=== PATIENT | female | born 1990 | race Caucasian/White ===

== ENCOUNTER 2020-08-07 09:00 | Emergency (ER) | payer OTHER, SELFPAY ==
[2020-08-07 09:10] VITALS: BP 174/111; O2SAT 98
[2020-08-07 10:01] VITALS: BP 153/107; PULSE 69; RESP 18; TEMP 36.7; O2SAT 98; BMI 26.4
[2020-08-07 10:21] VITALS: BP 156/96; PULSE 54; RESP 18; O2SAT 98
[2020-08-07 10:54] VITALS: BP 139/104; RESP 20; O2SAT 99
--- NOTE | 2020-08-07 11:44 | ED.SKABFB ---
HPI - Skin/Abscess/Foreign Bdy General Chief complaint: Eye Problems Stated complaint: cellulitis of rt eye, seen in [facility] yesterday so she had some cellulitis around the right upper lid fluid-filled area in given antibiotics took 1 dose made her nauseated today went back there due to these symptoms advised to come to the emergency room. Time Seen by Provider: 08/07/20 11:33 Related Data Previous Rx's Medication Instructions Recorded clindamycin HCl 300 mg PO Q8H 7 Days #21 cap 08/07/20 erythromycin 0.5 inch OPHTHALMIC (EYE) BID 7 08/07/20 Days #3.5 g ondansetron HCl [Zofran] 4 mg PO Q8H PRN #10 tab 08/07/20 Allergies Allergy/AdvReac Type Severity Reaction Status Date / Time penicillamine Allergy Unknown Verified 06/17/20 00:00 penicillin V Allergy Unknown hives Verified 04/22/20 00:00 Penicillins [PCN] Allergy Unknown HIVES Unverified 07/24/20 19:03 hydrocodone [From VICODIN] AdvReac Mild NAUSEA & Unverified 07/24/20 19:03 VOMITING,DIZZINESS sumatriptan [From IMITREX] AdvReac Mild HEADACHES Unverified 07/24/20 19:03 acetaminophen [Vicodin] AdvReac Unknown nausea and Verified 04/22/20 00:00 vomiting Vicodin Allergy Unknown Uncoded 06/17/20 00:00 Review of Systems Review of Systems: Yes all other systems are reviewed and are negative Eyes: Eyes: Reports as per HPI, Denies blurry vision, Denies exophthalmos, Denies change in vision, Denies decreased night vision, Denies diplopia, Denies eye discharge, Denies dry eyes, Denies floaters, Denies irritation, Denies itchy eyes, Denies other visual disturbances, Denies eye pain, Denies requires corrective lenses, Denies seeing flashes, Denies photophobia, Denies spots in vision, Denies tunnel vision and Denies other ENT: Reports system reviewed and no additional complaints, except as documented, Denies dental pain, Denies ear discharge, Denies otalgia, Denies hoarseness and Denies lip swelling Cardiovascular: Cardiovascular: Reports as per HPI Respiratory: Respiratory: Reports no additional respiratory complaints Musculoskeletal: Musculoskeletal: Reports no additional musculoskeletal complaints Neurologic: Reports system reviewed and no additional complaints, except as documented Hematologic/Lymphatic: Hematologic/Lymphatic: Reports no additional hematologic/lymphatic complaints Allergic/Immunologic: Allergic/Immunologic: Denies itchy eyes and Denies lip swelling PMFSH Past Medical History Attestation statement: The following information was validated with the patient. Medical History (Updated 08/07/20 @ 12:06 by Pranav Hall NP) Migraine Surgical History (Updated 08/07/20 @ 10:10 by Mary Lou Zepeda) History of 2 sections Tubal ligation status Social History Social History Advance Directives: No Advance Directives Information Provided: No Physical Exam Vital Signs and I&O and Narrative: Vital Signs and I&O: Vital Signs Temp 98.0 F 08/07/20 10:01 Pulse 77 08/07/20 12:20 Resp 18 08/07/20 12:20 BP 155/89 H 08/07/20 12:20 Pulse Ox 99 08/07/20 10:54 Intake & Output 08/06/20 08/07/20 08/07/20 18:59 06:59 18:59 Weight 69.853 kg Body Mass Index 26.4 Const: General: cooperative and healthy appearing HENMT: Head: Yes normal to inspection Eyes: General: appearance normal, both eyes and all related structures Eyelids: Yes eyelid abnormality ( Right upper lip very minimal swelling and erythema. ) Conjunctivae: conjunctivae normal Sclerae: sclerae normal Corneas: corneas normal Pupils: Equal, round and reactive pupils present and Pupil size comments EOM: EOMs intact bilaterally Direct Ophthalmoscopy: normal light reflex and No photophobia Eyes/upper lids images: 1. 2. 3. Neck: Neck: Yes normal visual inspection Chest: Chest palpation & inspection: normal inspection of the chest Resp: Effort & Inspection: normal respiratory effort Neuro: Cranial nerves: Yes Equal, round and reactive pupils present MDM - Skin/Abscess/Foreign Bdy MDM Narrative Medical decision making narrative: exam consistent with very mild blepharitis with slight erythema extending down to the inferior orbit area. Seen at [facility] given Dicloxacillin which she took 1 dose of but made her very nauseated and GI upset. Exam otherwise relatively benign. No vision changes. No pain with EOM. Pictures taking on patient's phone. At this time will change antibiotics to clindamycin and erythromycin eye appointment. Patient will return tomorrow or the day after for recheck. Differential Diagnosis Differential diagnosis: Likely abscess of skin or subcutaneous tissue, urticaria, allergic reaction to drug and cellulitis; Unlikely herpes zoster, eczema and contact dermatitis Medical Records Attestation: I reviewed the patient's medical records. Lab Data Attestation: I reviewed the patient's lab results. Discharge Plan Discharge Clinical Impression: Blepharitis of eyelid of right eye Qualifiers: Blepharitis type: unspecified type Eyelid: upper Qualified Code(s): H01.001 - Unspecified blepharitis right upper eyelid Patient Disposition: Home, Self-Care Instructions: Orbital Cellulitis (ED) Prescriptions: New clindamycin HCl 300 mg capsule 300 mg PO Q8H 7 Days Qty: 21 RF: 0 ondansetron HCl [Zofran] 4 mg tablet 4 mg PO Q8H PRN (Reason: nausea and vomiting) Qty: 10 RF: 0 erythromycin 5 mg/gram (0.5 %) ointment 0.5 inch ophthalmic (eye) BID 7 Days Qty: 3.5 RF: 0 Interventions: ED Discharge Assessment Last Done: 08/07/20 12:19 Discharge Date/Time: 08/07/20 12:21
[2020-08-07 12:20] VITALS: BP 155/89; PULSE 77; RESP 18
== END 2020-08-07 12:21 | disposition home or self-care (01) ==
PROVIDERS: Emergency Provider Emergency Medicine; PCP Internal Medicine
DX: H01.001 Unspecified blepharitis right upper eyelid (principal)
CPT/HCPCS: 99283; 99284

== ENCOUNTER 2020-10-07 08:02 | Outpatient (REF) | payer OTHER, SELFPAY ==
[2020-10-07 09:28] LABS: MANUAL DIFF FLAG NO
[2020-10-07 09:30] LABS: Basophils Percent Auto 0.7 % (0-2); Eosinophils Absolute Auto 0.1 X10*3/uL (0.0-0.4); Eosinophils Percent Auto 2.4 % (0-4); Hematocrit 38.6 % (37-47); Hemoglobin 12.9 g/dl (12.0-16.0); Imm Gran Abs Auto 0.01 X10*3/uL (0.00-0.03); Imm Gran Pct Auto 0.2 % (0.0-0.4); Lymphocytes Absolute Auto 1.9 X10*3/uL (1.2-4.9); Mean Corpuscular HGB Conc 33.4 g/dl (31.0-35.0); Mean Corpuscular Hemoglobin 32.1 pg (27.0-33.0); Mean Platelet Volume 9.2 fL (9.4-12.3); Monocytes Absolute Auto 0.3 X10*3/uL (0.1-1.2); Monocytes Percent Auto 7.2 % (2-11); Neutrophils Absolute Auto 2.2 X10*3/uL (2.0-8.3); Neutrophils Percent Auto 48.5 % (45-73); Platelet Count 286 X10*3/uL (160-400); Red Blood Count 4.02 X10*6/uL (4.20-5.50); Red Cell Distribution Width 13.3 % (11.0-16.0); White Blood Count 4.6 X10*3/uL (4.8-10.8)
[2020-10-07 10:00] LABS: Alanine Aminotransferase 16 U/L (0-31); Albumin Level 4.1 g/dL (3.5-5.0); Alkaline Phosphatase 58 U/L (39-117); Anion Gap 14 (12-20); Aspartate Amino Transferase 31 U/L (5-31); Bilirubin Total 0.6 mg/dL (0.0-1.0); Blood Urea Nitrogen 15 mg/dL (9-16); C Reactive Protein 0.05 mg/dL (< or = 0.50); Calcium 8.7 mg/dL (8.4-10.2); Carbon Dioxide 28 mmol/L (22-29); Chloride 103 mmol/L (96-108); Cholesterol 200 mg/dL; Estimated Glomerular Filt Rate > 60; Glucose Random 82 mg/dL (60-115); HDL Cholesterol 107 mg/dL; Iron 64 mcg/dL (30-160); LDL Cholesterol Calculated 75 mg/dl; Percent Iron Saturation 22 % (15-50); Potassium 4.5 mmol/l (3.3-5.1); Sodium 140 mmol/L (135-145); Total Iron Binding Capacity 297 mcg/dL (228-428); Total Protein 6.8 g/dL (6.5-8.0); Triglycerides 93 mg/dL; Unsaturated Iron Binding 233 ug/dL
[2020-10-07 10:20] LABS: Ferritin 65 ng/mL (10-122); TSH reflex Free T4 1.46 mIU/mL (0.32-4.0); Vitamin D 25-OH Total 29.9 ng/mL (>30)
[2020-10-07 10:25] LABS: Folate 8.6 ng/mL (> or = 4.0); Vitamin B12 185 pg/mL (200-900)
[2020-10-07 10:39] LABS: Estimated Average Glucose 91 mg/dL; Hemoglobin A1c % 4.8 %
[2020-10-09 05:42] LABS: Insulin Level Total 3.4 uIU/mL
[2020-10-10 11:19] LABS: Vitamin B1 6 nmol/L (8-30)
[2020-10-16 20:17] LABS: Vitamin A 92 mcg/dL (38-98)
== END 2020-10-07 08:03 | disposition home or self-care (01) ==
LOC: HO.LAB 08:02
PROVIDERS: PCP Internal Medicine; Visit Provider Surgery
DX: K91.2 Postsurgical malabsorption, not elsewhere classified (principal)
CPT/HCPCS: 36415; 80053; 80061; 82306; 82607; 82728; 82746; 83036; 83525; 83540; 84425; 84443; 84590; 84630; 85025; 86140

== ENCOUNTER 2020-10-20 07:11 | Outpatient (REF) | payer OTHER, SELFPAY ==
[2020-10-20 08:20] LABS: COVID-19 Test Negative (Negative)
== END 2020-10-20 07:12 | disposition home or self-care (01) ==
LOC: HO.EMPCOV 07:11
PROVIDERS: PCP Internal Medicine; Visit Provider Internal Medicine
DX: Z20.828 Contact with and (suspected) exposure to other viral communicable diseases (principal)
CPT/HCPCS: 87635; C9803

== ENCOUNTER 2020-12-01 08:50 | Outpatient (REF) | payer OTHER, SELFPAY ==
[2020-12-05 10:07] LABS: Vitamin B1 18 nmol/L (8-30)
== END 2020-12-01 08:51 | disposition home or self-care (01) ==
LOC: HO.LAB 08:50
PROVIDERS: PCP Physician Assistant; Visit Provider Surgery
DX: Z01.818 Encounter for other preprocedural examination (principal); E51.9 Thiamine deficiency, unspecified
CPT/HCPCS: 36415; 84425